=== PATIENT | female | born 1995 | race Two or more races ===

== ENCOUNTER 2021-10-14 14:15 | Emergency (ER) | payer BC, MEDICAID ==
[~2021-10-14] VITALS: Ht 170.2 cm; Wt 59.0 kg
--- NOTE | 2021-10-14 14:20 | NUR ---
BIBS C/O SORETHROAT SINCE THIS MORNING, VAGINAL DISCHARGE NOTED TODAY. AMBULATORY, PLACED ON BED, [id number].
--- NOTE | 2021-10-14 14:25 | NUR ---
AT BED SIDE
[2021-10-14 14:27] VITALS: BP 127/90
--- NOTE | 2021-10-14 16:45 | NUR ---
RAPID GROUP STREP, WET MOUNT SENT TO LAB
[2021-10-14] MEDS ORDERED: METR70GE17 VG (18:22)
[2021-10-14] MEDS ORDERED: AMOX875T2 PO (18:22)
[2021-10-15] MEDS ORDERED: METR-147 PO (23:34)
== END 2021-10-14 18:30 | disposition home or self-care (01) ==
LOC: ER 14:17
DX: J03.90 Acute tonsillitis, unspecified (principal); N76.0 Acute vaginitis; Z60.2 Problems related to living alone; Z79.899 Other long term (current) drug therapy
CPT/HCPCS: 86403-TC; 87210-TC; 87491; 87591